=== PATIENT | male | born 1990 | race Caucasian/White ===

== ENCOUNTER 2024-11-13 07:55 | Outpatient (AMB) | payer BC, SELFPAY ==
--- NOTE | 2024-11-13 07:58 | MHC.PC.OV ---
Vital Signs 11/13/24 08:08 Height 6 ft Weight 206 lb BMI 27.9 BP 118/73 Blood Pressure Location Lt brachial Position Sitting Respiration 16 Pulse 77 Pulse Source Pulse Oximeter Temp 98.3 F Temp Source Oral Pulse Oximetry (%) 98 Oxygen Delivery Method Room Air Intake Visit Reasons: CPE Intake Note: patient here for new patient visit Service Greeter Required: No Allergies No Known Allergies Allergy (Verified 11/13/24 08:10) Medication List - Last Reconciled 11/13/24 by Audra Mendoza CNP No Known Home Meds Tobacco use date assessed: 11/13/24 Dental Screening Dental Screen Date: 11/13/24 Did you have a dental visit in the last 12 months?: Yes Did you have a dental problem in the last 6 months where you did not have access to dental care?: No Was dental information given to patient?: Patient has dentist HPI HPI Comments History of Present Illness Details 34-year-old male presents to [facility]. Denies h/o or current anxiety or depression. Request testosterone check. Prior PCP? - Dr. Dr. Corie Mehta, [place] Last office visit/CPE/labs - 20 years Acute issue(s) - Reports painless and non-itchy, brown, dry lesion to his left forearm x 1 year Past Medical History - Pilonidal cyst Surgical History - Pilonidal cyst removal 2005 Family History - Dad: HTN, DM, HLD, prostate cancer - Mom: Breast cancer - PGM: HTN, HLD - MGM: Breast cancer Social History - Nonsmoker. Does not vape. Drinks 6 beers monthly. Denies recreational drug use - Has been making healthy dietary choices. Walks regularly. Generally sleep well Health maintenance - Last eye exam was a months ago with [facility], [place]: normal. Encouraged to sign a release for his PCP to obtain his ophthalmology record - Last dental visit was 6-8 months ago - Last tetanus vaccine was more than 10 years ago; received Tdap vaccine today - Has not been vaccinated for the flu this season; declines vaccination [facility] Surgical History (Updated 11/13/24 @ 08:40 by Monika Motley MA) History of surgical removal of pilonidal cyst Family History (Updated 11/13/24 @ 08:16 by Monika Motley MA) Father High blood pressure High cholesterol Diabetes Prostate cancer Paternal Grandmother High blood pressure High cholesterol Brother High blood pressure High cholesterol Mother Breast cancer Maternal Grandmother Breast cancer Social History (Updated 11/13/24 @ 08:08 by Monika Motley MA) Housing: House Patient Tobacco Use Status: Never used Tobacco e-Cigarette/Vaping Use: Never Used Second Hand Smoke Exposure: No service: No Current occupational status: employed Current occupation: [employer] Current occupational exposures/hazards: No Cognitive needs: No Hearing needs: No Vision needs: Yes Questionnaire PHQ-9 Over the last 2 weeks, how often have you been bothered by any of the following problems? 1. Little interest or pleasure in doing things: more than half the days 2. Feeling down, depressed, or hopeless: several days 3. Trouble falling or staying asleep, or sleeping too much: more than half the days 4. Feeling tired or having little energy: nearly every day 5. Poor appetite or overeating: several days 6. Feeling bad about yourself - or that you are a failure or have let yourself or your family down: not at all 7. Trouble concentrating on things, such as reading the newspaper or watching television: nearly every day 8. Moving or speaking so slowly that other people could have noticed. Or the opposite - being so fidgety or restless that you have been moving around a lot more than usual: not at all 9. Thoughts that you would be better off or of hurting yourself in some way: not at all Total score: 12 Depression Screening Interpretation: Positive Depression Screening Done: Yes 67728 - PHQ-9 Billing: Yes Source: Developed by Drs. Josue Ca, Amelia Garces, Damien Gibbons and colleagues, with an educational skip from [employer]. Thrive Questionnaire Date Thrive assessed: 11/13/24 I am a: Patient What is your living situation today?: I have a steady place to live Within the past 12 months, did the food you bought not last and you didn't have the money to get more?: Never true Within the past 12 months, did you worry whether your food would run out before you got money to buy more?: Never true Do you have trouble paying for medicines?: No Do you have trouble getting transportation to medical appointments?: No Do you have trouble paying your heating and electricity bill?: No Do you have trouble taking care of your child, family member or friend?: No Do you have trouble with day-to-day activities such as bathing, preparing meals, shopping, managing finances, etc.?: No Are you currently unemployed and looking for a job?: No Are you interested in more education?: No Please select the resources that you would like help with: None Currently or been in a relationship where the following occur: No concerns reported and I choose not to answer THRIVE Score: 0 AUDIT C Alcohol Use Questionnaire (AUDIT-C) 1. How often do you have a drink containing alcohol?: Monthly or less 2. How many drinks containing alcohol do you have on a typical day when you are drinking?: 1 or 2 3. How often do you have six or more drinks on one occasion?: Less than monthly Total Score: 2 Score Reviewed/Action Taken: Yes LIBBY-7 AMB Questionnaire LIBBY-7 Date LIBBY - 7 assessed: 11/13/24 Feeling nervous, anxious, or on edge: 0 = Not at all Not being able to stop or control worryin = Not at all Worrying too much about different things: 1 = Several days Trouble relaxin = Several days Being so restless that it is hard to sit still: 0 = Not at all Becoming easily annoyed or irritable: 1 = Several days Feeling afraid as if something awful might happen: 0 = Not at all Total LIBBY-7 score (0-4 normal; 5-9 mild; 10-14 moderate; 15-21 severe): 3 Source: Developed by Drs. Josue Ca, Amelia Garces, Damien Gibbons and colleagues, with an educational skip from [employer]. LIBBY-7 Assessment Billing LIBBY-7 Assessment Tool: LIBBY-7 Assessment 95628 Review of Systems Const Details: Denies chills, Denies fatigue, Denies fever(s), Denies headache(s) and Denies weakness HEENT Denies change in vision, Denies dizziness, Denies headache(s), Denies hearing loss, Denies nasal congestion, Denies sinus pain, Denies sinus pressure and Denies sore throat Card Denies chest pain, Denies lightheadedness, Denies dyspnea and Denies other (palpitations) Resp Denies cough, Denies dyspnea and Denies wheezing GI Denies abdominal pain, Denies melena, Denies hematochezia, Denies change in bowel habits, Denies dyspepsia and Denies nausea Denies hematuria and Denies dysuria Musc Denies abnormal gait, Denies myalgias, Denies arthralgias, Denies numbness and Denies tingling Skin/Breast Denies rash, Denies unusual bruising and Denies wounds Neuro Denies abnormal gait, Denies dizziness, Denies headache(s), Denies memory loss, Denies numbness, Denies Sensory deficit (Neuro), Denies tingling and Denies weakness Psych Denies anxiety, Denies depression and Denies memory loss Endo Denies cold intolerance, Denies fatigue, Denies heat intolerance, Denies polydipsia and Denies polyuria Harsh/Lymph Denies easy bleeding and Denies easy bruising Aller/Immun Denies wheezing Physical exam (Primary Care) Vital Signs: Last Vital Signs Temp 98.3 F 11/13/24 08:08 Pulse 77 11/13/24 08:08 Resp 16 11/13/24 08:08 BP 118/73 11/13/24 08:08 Pulse Ox 98 11/13/24 08:08 Oxygen Delivery Method Room Air 11/13/24 08:08 BMI result Body Mass Index 27.9 Tobacco/Smoking Status: Tobacco use Status Tobacco use date assessed 11/13/24 11/13/24 08:08 Patient Tobacco Use Status Never used Tobacco 11/13/24 08:08 e-Cigarette/Vaping Use Never Used 11/13/24 08:08 PHQ-9: PHQ-9 Score PHQ-9: Total score 12 11/13/24 08:41 Depression Screening Interpretation: Positive Thrive Assessment: Date of Thrive Assessment Date Thrive assessed 11/13/24 11/13/24 07:59 Currently or been in a relationship where the following occur: No concerns reported and I choose not to answer Const Other: General: no acute distress, well developed, alert and awake Nutritional Appearance: well nourished Orientation/consciousness: patient oriented x3 HENMT Head: Yes normocephalic and Yes atraumatic Ears: hearing grossly normal bilaterally and TM's normal bilaterally General nose exam: Normal external nose present and Normal nares present Mouth: Normal oral and palatal mucosa present and moist mucous membranes Teeth and gingiva: dentition normal Throat: Yes oropharynx normal Eyes Pupils: Equal, round and reactive pupils present and Pupil accommodation reflex normal EOM: EOMs intact bilaterally Neck Neck: Yes normal visual inspection, Yes no lymphadenopathy and Yes trachea midline Thyroid: Thyroid normal Carotids: no bruits Lymphatic: no lymphadenopathy noted Chest Chest palpation & inspection: normal inspection of the chest Resp Effort & Inspection: normal respiratory effort Auscultation: clear to auscultation bilaterally Cardio Rate: regular rate Rhythm: regular rhythm Heart sounds: S1 normal heart sound present, S2 normal heart sound present, no gallops, no murmurs and no rubs Bruits: no abdominal aortic bruits and no carotid bruits GI Palpation (GI): No Abdominal aortic bruit present, Soft to palpation, nontender, No hepatosplenomegaly present and No Rebound tenderness present Auscultation: normal bowel sounds General: Yes no CVA tenderness Back/Spine/Pelvis Back: no CVA tenderness Cervical Spine: cervical ROM normal and No Cervical spine tenderness Thoracic/Lumbar Spine: thoraco-lumbar ROM normal, No pain with thoraco-lumbar ROM, No thoracic spinal tenderness and No lumbar spinal tenderness Skin General: warm and dry. Normal skin color. Normal skin turgor Lesions: Slightly raised, dry, light brown lesion to the left forearm Rashes: no rashes Trauma: no lacerations or abrasions Wounds: no wounds Nails: normal Neuro General: patient oriented x3, gait normal and CN's II-XI intact bilaterally Cranial nerves: Yes Equal, round and reactive pupils present Cognition (Neuro): normal cognition Gait exam (Neuro): Normal gait present Motor exam (neuro): 5/5 motor strength present throughout Sensory Exam: No Sensory deficit (Neuro) Deep tendon reflexes (DTR's): Right patellar reflex intensity grade: 2+ and Left patellar reflex intensity grade: 2+ Extrem General: Yes normal to inspection, No edema and No calf tenderness Psych Appearance: grossly normal Affect: normal affect Attitude: cooperative Thought process: Normal thought process present Immunizations Boostrix Tdap 2.5 Lf unit-8 mcg-5 Lf/0.5 mL intramuscular syringe Performing Provider: Audra Mendoza CNP Performing Location: [facility] Administered by: Edgar Brenner RN on 11/13/24 08:47 Dose Route Admin Location Dispensed Lot Number Expiration Date [facility] Billing Machine Operator 0.5 mL IM Left Deltoid 0.5 mL [id number] 02/19/27 [id number] [address] Total Dispensed Waste 0.5 mL 0 % VIS Given Date VIS Provided VIS Publication Date 11/13/24 Single Vaccine 20 Eligibility Eligibility Date Funding Source Not VF Eligible 11/13/24 Private Coding Level of Care Code New Pt Level 4 (70432) New Pt Prev Care 18-39yr(01732 Diagnoses Normal routine history and physical examination Z00.00 Skin lesion L98.9 Laboratory tests ordered as part of a complete physical exam (CPE) Z00.00 Additional Codes LIBBY-7 Assessment Billing - LIBBY-7 Assessment Tool: LIBBY-7 Assessment 41782 ([id number]) PHQ-9 - 87427 - PHQ-9 Billing: Yes ([id number]) Assessment & Plan Assessment & Plan (1) Normal routine history and physical examination: Code(s): Z00.00 - Encounter for general adult medical examination without abnormal findings Category: Medical Plan: No significant functional limitation noted. Healthy diet and routine exercise encouraged. Perform lab work in follow-up for a telehealth visit in 2-4 weeks. Informed that he may have to pay [id number] for testosterone blood work. Return sooner with symptoms or concerns. Verbalized understanding and agreed with the plan. (2) Skin lesion: Code(s): L98.9 - Disorder of the skin and subcutaneous tissue, unspecified Category: Medical Plan: Reports painless and non-itchy, brown, dry lesion to his left forearm x 1 year. Slightly raised, dry, light brown lesion to the left forearm. Encouraged to apply moisturizer as needed. Referred to dermatology. Follow-up with symptoms or concerns. Verbalized understanding and agreed with the plan. (3) Laboratory tests ordered as part of a complete physical exam (CPE): Code(s): Z00.00 - Encounter for general adult medical examination without abnormal findings Category: Medical Plan: Fasting labs ordered as part of a complete physical exam. Advised to fast for at least 10 hours before getting labs drawn. May drink water Verbalized understanding and agreed with treatment plan. Orders: Orders Complete Blood Count Auto Diff Today Z00.00 - Encounter for general adult medical examination without abnormal findings Comprehensive [place]. Panel Fast Today Z00.00 - Encounter for general adult medical examination without abnormal findings Lipid Panel Today Z00.00 - Encounter for general adult medical examination without abnormal findings UA CC w/rflx Micro + Cult Today Z00.00 - Encounter for general adult medical examination without abnormal findings TDaP Immunization Today Z23 - Encounter for immunization Microalbumin, Random (w Creat) Today Z00.00 - Encounter for general adult medical examination without abnormal findings TSH reflex Free T4 Today Z00.00 - Encounter for general adult medical examination without abnormal findings Vitamin D 25-OH Total Today Z00.00 - Encounter for general adult medical examination without abnormal findings PSA, Ultra Sensitive Today Z00.00 - Encounter for general adult medical examination without abnormal findings Testosterone, Free/Total Today Z00.00 - Encounter for general adult medical examination without abnormal findings Referrals Dermatology Referral L98.9 - Disorder of the skin and subcutaneous tissue, unspecified
[2024-11-13 08:08] VITALS: BP 118/73; PULSE 77; RESP 16; TEMP 36.8; O2SAT 98; BMI 27.9
== END 2024-11-13 08:43 | disposition home or self-care (01) ==
LOC: HO.HMCFM 07:56
PROVIDERS: PCP Nurse Practitioner Family; Visit Provider Nurse Practitioner Family
DX: Z00.00 Encounter for general adult medical examination without abnormal findings (principal); L98.9 Disorder of the skin and subcutaneous tissue, unspecified; Z23 Encounter for immunization

== ENCOUNTER → 2024-11-13 07:55 | Outpatient (BNVA) | payer BC, SELFPAY | PROVIDERS: PCP Nurse Practitioner Family; Visit Provider Nurse Practitioner Family | DX: Z00.00 Encounter for general adult medical examination without abnormal findings (principal); L98.9 Disorder of the skin and subcutaneous tissue, unspecified; Z23 Encounter for immunization | CPT/HCPCS: 90471; 90715; 96127 ==

== ENCOUNTER 2024-11-13 08:51 | Outpatient (REF) | payer BC, SELFPAY ==
[2024-11-13 11:20] LABS: Appearance Urine Clear; Glucose Urine UA Negative (Negative); PH 6.0 (5.0-9.0); Specific Gravity - Urine 1.015 (1.005-1.025); UMIC TRIGGER UACC YES
[2024-11-13 11:32] LABS: MANUAL DIFF FLAG NO
[2024-11-13 11:40] LABS: Hematocrit 47.1 % (42.0-52.0); Hemoglobin 16.7 g/dl (14.0-18.0); Imm Gran Abs Auto 0.01 X10*3/uL (0.00-0.03); Imm Gran Pct Auto 0.1 % (0.0-0.4); Lymphocytes Absolute Auto 1.8 X10*3/uL (1.2-4.9); Mean Corpuscular HGB Conc 35.5 g/dl (31.0-36.0); Mean Corpuscular Hemoglobin 28.8 pg (27.0-33.0); Mean Corpuscular Volume 81.3 fL (80.0-98.0); NRBC Abs Auto 0.000 X10*3/uL (0.0-0.012); NRBC Pct Auto 0.0 /100WBC (0.0-0.2); Platelet Count 252 X10*3/uL (160-400); Red Blood Count 5.79 X10*6/uL (4.60-5.80); White Blood Count 7.0 X10*3/uL (4.8-10.8)
[2024-11-13 12:12] LABS: Alanine Aminotransferase 44 U/L (0-40); Albumin Level 4.8 g/dL (3.5-5.0); Alkaline Phosphatase 87 U/L (39-117); Anion Gap 10 (12-20); Aspartate Amino Transferase 28 U/L (5-37); Blood Urea Nitrogen 8 mg/dL (9-16); Calcium 9.3 mg/dL (8.4-10.2); Carbon Dioxide 29 mmol/L (22-29); Chloride 106 mmol/L (96-108); Cholesterol 227 mg/dL (<200); Estimated Glomerular Filt Rate > 60; HDL Cholesterol 43 mg/dL (>40); Potassium 4.2 mmol/L (3.3-5.1); Sodium 141 mmol/L (135-145); Total Protein 7.6 g/dL (6.5-8.0); Triglycerides 192 mg/dL (<150)
[2024-11-13 12:13] LABS: Microalbum/Creatinine Ratio Ur 6.6 ug/mg cr (<30)
[2024-11-17 18:28] LABS: Testosterone, Free 85.6 pg/mL (35.0-155.0)
[2024-11-18 17:43] LABS: PSA, Ultra Sensitive 1.84 ng/mL
== END 2024-11-13 08:52 | disposition home or self-care (01) ==
LOC: HO.WFDLDS 08:51
PROVIDERS: Visit Provider Nurse Practitioner Family
DX: Z00.00 Encounter for general adult medical examination without abnormal findings (principal); Z23 Encounter for immunization
CPT/HCPCS: 36415; 80053; 80061; 81001; 82043; 82306; 82570; 84153; 84402; 84403; 84443; 85025